=== PATIENT | male | born 1990 | race Caucasian/White ===

== ENCOUNTER 2021-01-24 21:48 | Emergency (ER) | payer OTHER ==
[~2021-01-24] VITALS: Ht 172.7 cm; Wt 79.5 kg
[2021-01-24 21:57] VITALS: BP 125/74
[2021-01-24 22:16] LABS: BASOPHILS % (AUTO) 0.6 % (0-1); EOSINOPHILS # (AUTO) 0.2 X10'3 (0-0.9); EOSINOPHILS % (AUTO) 3.1 % (0-6); HEMOGLOBIN 14.5 g/dl (14.0-17.9); LYMPHOCYTES # (AUTO) 3.6 X10'3 (1.1-4.8); LYMPHOCYTES % (AUTO) 47.7 % (21-51); MEAN CORPUSCULAR HEMOGLOBIN 30.4 PG (27.0-31.0); MEAN CORPUSCULAR HGB CONC 35.3 g/dL (33.0-36.5); MEAN CORPUSCULAR VOLUME 86.1 FL (78-98); MEAN PLATELET VOLUME 7.5 FL (7.4-10.4); MONOCYTES # (AUTO) 0.4 X10'3 (0-0.9); MONOCYTES % (AUTO) 5.6 % (2-12); NEUTROPHILS # (AUTO) 3.3 X10'3 (1.8-7.7); PLATELET COUNT 256 X10'3 (140-440); RED BLOOD COUNT 4.77 X10'6 (4.70-6.10); RED CELL DISTRIBUTION WIDTH 13.1 % (11.5-14.5); WHITE BLOOD COUNT 7.6 X10'3 (4.5-11.0)
[2021-01-24 22:30] LABS: ALANINE AMINOTRANSFERASE 31 U/L (12-78); ALBUMIN 4.1 G/DL (3.4-5.0); ALBUMIN/GLOBULIN RATIO 1.2 (1.1-1.5); ALKALINE PHOSPHATASE 41 IU/L (46-116); ANION GAP 6 (8-16); ASPARTATE AMINO TRANSFERASE 15 U/L (10-37); BILIRUBIN,TOTAL 0.5 MG/DL (0.1-1.0); BLOOD UREA NITROGEN 15 MG/DL (7-18); BUN/CREATININE RATIO 14.3 (5.4-32.0); CALCIUM 8.5 MG/DL (8.5-10.1); CHLORIDE 102 MMOL/L (99-107); CREATININE 1.05 MG/DL (0.60-1.10); GLUCOSE 134 MG/DL (70-104); POTASSIUM 3.4 MMOL/L (3.5-5.1); SODIUM 139 MMOL/L (135-145); TOTAL CARBON DIOXIDE 31.1 MMOL/L (24-32); TOTAL PROTEIN 7.4 G/DL (6.4-8.2); eGFR 84 ML/MIN
[2021-01-25 00:01] LABS: TROPONIN I < 0.04 NG/ML (0.0-0.05)
== END 2021-01-25 02:08 | disposition home or self-care (01) ==
LOC: ER 21:48
DX: R07.89 Other chest pain (principal); R45.0 Nervousness; I10 Essential (primary) hypertension; F15.90 Other stimulant use, unspecified, uncomplicated
CPT/HCPCS: 36415; 71045; 80053; 83880; 84484; 85025; 93005; 99285

== ENCOUNTER 2022-11-05 10:22 | Outpatient (CLI) | payer OTHER ==
[~2022-11-05] VITALS: Ht 172.7 cm; Wt 72.6 kg
[2022-11-05] MEDS ORDERED: albuterol 2.5 MG/3 ML nebule NEB ONE (10:50)
== END 2022-11-05 23:59 | disposition home or self-care (01) ==
LOC: RT 10:22
PROVIDERS: ATTEND Chiropractor
DX: R94.2 Abnormal results of pulmonary function studies (principal); J45.998 Other asthma
CPT/HCPCS: 94060; 94760

== ENCOUNTER 2024-08-12 08:51 | Emergency (ER) | payer OTHER ==
[~2024-08-12] VITALS: Ht 172.7 cm; Wt 80.3 kg
[2024-08-12] MEDS: diazepam 5mg tablet PO ONE (09:46)
[2024-08-12] MEDS: dexamethasone sod phosphate 10mg/ml inj IM STA (09:46)
[2024-08-12] MEDS ORDERED: DIAZ2TAB PO (10:08)
[2024-08-12 10:31] VITALS: BP 115/74; PULSE 82; RESP 16; TEMP 98.1; O2SAT 98
== END 2024-08-12 10:32 | disposition home or self-care (01) ==
LOC: ER 08:52
DX: M43.6 Torticollis (principal); I10 Essential (primary) hypertension; Z88.6 Allergy status to analgesic agent; Z88.8 Allergy status to other drugs, medicaments and biological substances
CPT/HCPCS: 96372; 99283; J1100; L0172